=== PATIENT | female | born 1955 | race Caucasian/White ===

== ENCOUNTER 2018-03-04 16:14 | Emergency (ER) | payer OTHER ==
[2018-03-04 16:39] VITALS: BP 144/72; PULSE 75; TEMP 98.3; BMI 19.3
--- NOTE | 2018-03-04 16:39 | PDOC ---
Rapid Medical Evaluation Time Seen by Provider: 03/04/18 16:37 Medical Evaluation: I have performed a brief in-person evaluation of this patient. The patient presents with a chief complaint of: table fell on right food yesterday. Right foot pain today. Pertinent physical exam findings: swelling to right dorsal foot I have ordered the following: xray right foot/ankle The patient will proceed to the ED for further evaluation. Discharge Disposition - Diagnosis Foot pain, right - Referrals - Patient Instructions - Post Discharge Activity
--- NOTE | 2018-03-04 17:24 | PDOC ---
History of Present Illness - General Chief Complaint: Pain Stated Complaint: PAIN Time Seen by Provider: 03/04/18 16:37 History Source: Patient Exam Limitations: No Limitations - History of Present Illness Initial Comments: Patient is a 62-year-old male who is accompanied by a family member. She states that a table fell onto the dorsal aspect of her right foot she now has pain in this location. She states this occurred yesterday. Patient describes the pain as a throb, worse a palpation and rates it at a 7 out of 10. She has been taking Aleve with success. She denies previous injury or surgeries to her foot. Patient denies lower extremity paresthesia. 03/04/18 17:18 Past History - Travel Traveled outside of the country in the last 30 days: No Close contact w/someone who was outside of country & ill: No - Past Medical History Allergies/Adverse Reactions: Allergies Allergy/AdvReac Type Severity Reaction Status Date / Time No Known Allergies Allergy Verified 03/04/18 16:39 Home Medications: Ambulatory Orders Ibuprofen 600 mg PO QID PRN 5 Days #20 tablet 03/04/18 COPD: No - Immunization History Immunization Up to Date: Yes - Suicide/Smoking/Psychosocial Hx Smoking History: Never smoked Have you smoked in the past 12 months: No Information on smoking cessation initiated: No Hx Alcohol Use: No Drug/Substance Use Hx: No Review of Systems - Review of Systems Able to Perform ROS?: Yes All Other Systems: Reviewed and Negative *Physical Exam - Vital Signs Last Vital Signs Temp Pulse Resp BP Pulse Ox 98.3 F 75 20 144/72 99 03/04/18 16:37 03/04/18 16:37 03/04/18 16:37 03/04/18 16:37 03/04/18 16:37 - Physical Exam Comments: Constitutional: VS stated, pt appears in no apparent distress; ambulated to examination room, steady gait noted. Skin: Warm and dry. Intact, no lesions or excoriations. Head: Normocephalic; atraumatic Eyes: conjunctiva pink without injection or discharge. Throat: Oropharynx with pink and moist mucosa. Lungs: Bilateral breath sounds clear upon auscultation. No adventitious breath sounds. Heart: Regular rate and rhythm, Musculoskeletal: Focused on the right foot. Patient has pain upon palpation to the anterior aspect. No deformity. Pedal pulses present, cap refill less than 2 seconds, sensation intact. Neurologic: Awake, alert. Conversation fluent Psychiatric: Appropriate affect. 03/04/18 17:22 ED Treatment Course - RADIOLOGY Radiology Studies Ordered: 03/04/18 17:23 Pt's right foot xray was reviewed by myself as negative. Jared wrap was applied to the right foot. *DC/Admit/Observation/Transfer Diagnosis at time of Disposition: Foot sprain Diagnosis at time of Disposition: (Ruled Out): Foot pain, right - Discharge Dispostion Disposition: HOME Condition at time of disposition: Stable Decision to Admit order: No - Prescriptions Prescriptions: Ibuprofen 600 mg PO QID PRN 5 Days #20 tablet PRN Reason: Pain - Referrals Referrals: ON STAFF,NOT [Primary Care Provider] - - Patient Instructions Printed Discharge Instructions: DI for Foot Sprain Additional Instructions: Take ibuprofen 600 mg every 6 hours as needed for pain. Jared wrap on for comfort measures. Elevate the extremity. You can also alternate Tylenol 650 mg every 4 hours. Follow-up with your PCP. - Post Discharge Activity
== END 2018-03-04 17:30 | disposition home or self-care (01) ==
LOC: JERFT 16:14
DX: S93.601A Unspecified sprain of right foot, initial encounter (principal); W20.8XXA Other cause of strike by thrown, projected or falling object, initial encounter; Y93.89 Activity, other specified; Y92.9 Unspecified place or not applicable
CPT/HCPCS: 73630-TC-RT-FY; 99281-25

== ENCOUNTER 2022-12-24 12:10 | Day surgery (SDC) | payer MEDICARE, OTHER ==
[2022-12-18 14:04] VITALS: BMI 21.9
[2022-12-24 13:20] VITALS: RESP 18; TEMP 98
[2022-12-24 13:22] VITALS: BP 128/70; PULSE 70
== END 2022-12-24 13:54 | disposition home or self-care (01) ==
LOC: FASU-ENDO 12:10
PROVIDERS: ATTEND Internal Medicine Gastroenterology
PROC: 0DBP8ZX Excision of Rectum, Via Natural or Artificial Opening Endoscopic, Diagnostic (ICD-10-PCS; principal; 2022-12-24 12:40)
DX: Z12.11 Encounter for screening for malignant neoplasm of colon (principal); K63.5 Polyp of colon; K64.1 Second degree hemorrhoids
CPT/HCPCS: 88305-TC

== ENCOUNTER 2023-12-16 08:06 | Emergency (ER) | payer MEDICARE, OTHER ==
[2023-12-16 08:11] VITALS: RESP 18; TEMP 98; BMI 21.6
[2023-12-16] MEDS ORDERED: FAMOTIDINE 20 MG/50 ML IVPB 20 MG/50 ML MG IVPB ONE (09:51)
[2023-12-16] MEDS: FAMOTIDINE 20 MG/50 ML IVPB 20 MG/50 ML MG IVPB ONE (10:04)
[2023-12-16 10:11] LABS: BASO % 1.2 % (0-2.0); HEMATOCRIT 38.7 % (32.4-45.2); HEMOGLOBIN 12.6 GM/dL (10.7-15.3); LYMPH % 36.5 % (8-40); MCH 29.1 pg (25.7-33.7); MCHC 32.7 g/dl (32.0-36.0); MEAN PLT VOLUME 8.5 fl (7.5-11.1); MONO % 11.1 % (3.8-10.2); NEUT % 48.2 % (42.8-82.8); PLATELET COUNT 266 10^3/uL (134-434); RBC 4.35 M/mm3 (3.60-5.2); RDW 13.1 % (11.6-15.6); WHITE BLOOD COUNT 3.6 K/mm3 (4.0-10.0)
[2023-12-16 10:22] LABS: INR 1.03 (0.83-1.09); PROTHROMBIN TIME (PATIENT) 11.6 SEC (9.7-13.0)
[2023-12-16 10:25] LABS: ACTIVATED PTT 29.4 SECONDS (25.2-36.5)
[2023-12-16 10:29] LABS: POTASSIUM 4.6 mmol/L (3.5-5.1)
[2023-12-16 10:31] LABS: ALBUMIN 3.8 g/dl (3.4-5.0); BLOOD UREA NITROGEN 12.7 mg/dL (7-18)
[2023-12-16 10:34] LABS: CREATININE 0.8 mg/dL (0.55-1.3)
[2023-12-16 10:36] LABS: BILIRUBIN,TOTAL 0.6 mg/dL (0.2-1); TOT PROT 8.1 g/dl (6.4-8.2)
[2023-12-16 17:27] VITALS: BP 132/83; PULSE 76
== END 2023-12-16 17:30 | disposition home or self-care (01) ==
LOC: JER 08:06
PROC: 3E033GC Introduction of Other Therapeutic Substance into Peripheral Vein, Percutaneous Approach (ICD-10-PCS; principal; 2023-12-16)
DX: R10.13 Epigastric pain (principal)
CPT/HCPCS: 36415; 80053; 83690; 84484; 85025; 85610; 85730; 86850; 86900; 86901; 93005; 93010; 99284-25